=== PATIENT | female | born 1990 | race Caucasian/White ===

== ENCOUNTER 2017-03-20 13:41 | Emergency (ER) | payer OTHER ==
[~2017-03-20] VITALS: Ht 170.2 cm; Wt 103.2 kg
[2017-03-20 13:45] VITALS: BP 176/135; PULSE 73; RESP 15; O2SAT 100
[2017-03-20] MEDS ORDERED: diphenhydrAMINE-Zinc 2%-0.1% 30 Gm Cream TOPICAL ONE (14:00)
[2017-03-20] MEDS ORDERED: diphenhydrAMINE 25 mg Capsule PO ONE (14:00)
[2017-03-20] MEDS ORDERED: predniSONE 20 mg Tablet PO ONE (14:00)
--- NOTE | 2017-03-20 14:09 | ED.REPORT ---
HPI-Rash / Abscess Date of Service Mar 20, 2017 ED Provider: Ra Duran PA-C Shahnaz is an otherwise healthy 27-year-old female presented with a chief complaint of bee stings. Patient reports she was working outside yesterday when she encountered several stinging insects. Reports being stung on her left hand as well as her back and left side. Denies difficulty breathing, facial swelling, sensation of her throat closing. Patient reports increasing redness and swelling today. Attempted treatment with Benadryl yesterday and Tylenol this morning. Patient reports being stung previously without severe reaction. Nursing Notes Stated Complaint: REACTION TO 6 BEE STINGS Chief Complaint: Skin Rash/Abscess Nursing Notes Reviewed: Yes Allergies: Coded Allergies: No Known Allergies (Unverified , 03/20/17) Scheduled Prednisone (PredniSONE) 20 Mg Tablet 40 MG PO DAILY General Time Seen by MD: 13:50 Chief Complaint Other (bee stings) Past Medical History Past Medical History Denies Review of Systems Review of Systems Note: Negative unless stated otherwise in history of present illness Physical Exam General: Well appearing, well developed, well nourished, no acute distress. Head: Atraumatic, normocephalic. Eyes: No scleral icterus or injection. No discharge. Vision grossly intact. ENT: Voice clear, hearing grossly intact. No lip swelling. Respiratory: Regular rate and rhythm. Breath sounds present, clear to auscultation and equal bilaterally. Negative stridor. No respiratory distress. No increased work of breathing, speaks in complete sentences. Cardiovascular: Regular rate and rhythm, without murmur, gallop or rub. No pedal edema. Gastrointestinal: Abdomen flat and non-tender without guarding or rebound. Bowel sounds normoactive. Skin: 6 regions of blanching redness, swelling noted: 1 on the dorsum of the left hand, one on the right upper back and four on the left side. No retained stingers, areas of fluctuance or pointing abscesses. Neurological: Grossly nonfocal. Psychological: Alert and oriented. Speech appropriate, linear and logical. Behavior appropriate. Initial Vital Signs Vital Signs (First) Date Time Temp Pulse Resp B/P Pulse Ox O2 Delivery O2 Flow Rate FiO2 03/20/17 13:45 36.5 73 15 176/135 100 Room Air Normal Re-Eval/Medical Decision Med Decision/Clinical Course Otherwise healthy 27-year-old female presents for evaluation after being stung 6 5 flying insects yesterday at work. Increasing redness, swelling and pain today. Denies difficulty breathing, swallowing sensation of facial swelling or throat closing. Physical examination reveals a well-appearing female with areas of redness and swelling on the dorsum of the left hand back and side area there is no evidence of retained stinger, areas of fluctuance or abscess. Lung sounds are clear and equal bilaterally without respiratory distress or stridor. No evidence of facial swelling. At this point I do not suspect anaphylaxis and epinephrine was withheld. I discussed the case with Dr. Thomas, and treatment with prednisone, Benadryl and ketorolac, acetaminophen is initiated in the emergency Department. Recommend [id number] analgesia, Benadryl, Benadryl cream at home. Prescribed 2 days prednisone. Advised follow-up with primary care, provide emergency return precautions. Patient verbalizes understanding of and consented to plan. Discharge & Departure Impression: Primary Impression: Sting from hornet, wasp, or bee Encounter type: initial encounter Injury intent: accidental or unintentional Qualified Code: T63.451A - Toxic effect of venom of hornets, accidental (unintentional), initial encounter Disposition: Home Discharge Condition All VS Reviewed: Yes Condition: Stable Patient Instructions: Insect Bite or Sting (ED) Additional Instructions: Evaluation in the emergency department for insect stings includes interview and physical examination, both of which are reassuring this is not immediately dangerous conditions such as anaphylaxis. Believe this is the normal progression of an unfortunate event. We treated in the emergency department with pain medications, steroids and antihistamines. Allergies prescription for prednisone 40 mg to be taken once a day for the next 2 days. This will reduce the reaction. Additionally I suggested and 25 mg of Benadryl 4 times a day and using topical Benadryl cream directly on the affected areas. These will also benefit from cold compresses several times a day. The pain is best treated with 400 mg of ibuprofen (Advil, Motrin) every 6 hours , or 1000 mg of acetaminophen (Tylenol) every 6 hours. These drugs can be taken at the same time for more severe pain. I do not believe this will require follow-up, but contact your primary care provider if your symptoms are not significantly improved in a few days. Return to the emergency department for new or worsening symptoms including increasing redness, swelling, pain or discharge, difficulty breathing or swallowing, sensation of your throat closing. Referrals: Roslyn Moser (PCP) Magdiel Mason MD (Family) EDSupervising Provider for APC: Dorinda Thomas MD copies to: Roslyn Moser Seth PA-C Mar 20, 2017 14:09
[2017-03-20] MEDS ORDERED: PRE20 PO (14:10)
[2017-03-20 14:35] VITALS: BP 138/83; PULSE 73; RESP 16; O2SAT 99
== END 2017-03-20 14:50 | disposition home or self-care (01) ==
LOC: SED 13:41
DX: T63.451A Toxic effect of venom of hornets, accidental (unintentional), initial encounter (principal); Y93.89 Activity, other specified; Y92.69 Other specified industrial and construction area as the place of occurrence of the external cause; Y99.0 Civilian activity done for income or pay
CPT/HCPCS: 96372; 99283; J1885